=== PATIENT | male | born 1965 | race Caucasian/White ===

== ENCOUNTER 2017-11-16 06:36 | Emergency (ER) | payer OTHER ==
[~2017-11-16] VITALS: Ht 165.1 cm; Wt 68.0 kg
[2017-11-16] MEDS ORDERED: LIDOCAINE HCL 1% 20ML VIAL (Pyxis) INJ MC ONE (07:15)
[2017-11-16] MEDS ORDERED: LIDOCAINE HCL/PF 1% 10 MG/ML 5ML VIAL IJ SCH (07:27)
[2017-11-16] MEDS ORDERED: ACETAMINOPHEN WITH CODEINE 300/30MG TABLET PO ONE (08:15)
[2017-11-16 08:45] VITALS: BP 108/72
== END 2017-11-16 09:15 | disposition home or self-care (01) ==
LOC: ER 06:36
DX: S01.81XA Laceration without foreign body of other part of head, initial encounter (principal); M25.562 Pain in left knee; W08.XXXA Fall from other furniture, initial encounter; Y93.89 Activity, other specified; Y92.59 Other trade areas as the place of occurrence of the external cause; Y99.0 Civilian activity done for income or pay
CPT/HCPCS: 12011; 73590; 99284; J3490; X7700; Z7610